=== PATIENT | female | born 1975 | race African-American/Black ===

== ENCOUNTER 2024-03-07 10:18 | Day surgery (SDC) | payer OTHER ==
[~2024-03-07] VITALS: Ht 162.6 cm; Wt 83.5 kg
[2024-03-07] MEDS ORDERED: fentaNYL citrate 0.05 MG/ML VIAL ONE (11:32)
[2024-03-07] MEDS ORDERED: MIDAZOLAM 2 MG/2 ML VIAL ONE (11:33)
[2024-03-07] MEDS: fentaNYL citrate 0.05 MG/ML VIAL IVP ONE (12:13)
[2024-03-07] MEDS: LIDOCAINE 2% 100 MG/5 ML UJET TP ONE (12:21)
== END 2024-03-07 13:56 | disposition home or self-care (01) ==
LOC: MDS 10:18 → MMU 10:19 → MDS 12:56
PROVIDERS: ATTEND Internal Medicine Gastroenterology
DX: R19.5 Other fecal abnormalities (principal); K57.30 Diverticulosis of large intestine without perforation or abscess without bleeding; I10 Essential (primary) hypertension; Z98.891 History of uterine scar from previous surgery; Z79.899 Other long term (current) drug therapy; Z98.890 Other specified postprocedural states
CPT/HCPCS: 45378; J3010; J2250